=== PATIENT | male | born 1965 | race Hispanic/Latino ===

== ENCOUNTER → 2017-04-25 | Outpatient (CLI) | payer BC ==
[~2017-04-25] MED LIST: MULTI-VITAMIN1 EACH; NORCO 5-325 TA1 EACH PO; OMEPRAZOLE PO; ZANTAC150 MG
--- NOTE | 2017-04-26 09:24 | Diagnostic Imaging Report ---
Right knee MRI without contrast. History: Knee pain. Injury of the quadriceps. Swelling. Fall. Comparison: None. Technique: Multiplanar multi-sequence MRI of the knee without contrast. Findings: Medial compartment: There is a complex medial meniscus tear involving the posterior horn and body segments. The medial compartmental articular cartilage surfaces are slightly thin. The medial collateral ligament complex is intact. Lateral compartment: There is a complex tear involving the posterior horn of the lateral meniscus. The lateral compartmental articular cartilage surfaces are slightly thinned. The lateral collateral ligament complex is intact. Intercondylar notch: The ACL and PCL are intact. Patellofemoral compartment: No chondromalacia or patellar dislocation. Extensor mechanism: There is a full-thickness quadriceps tendon tear at its insertion site on the superior pole of the patella. There is minimal retraction of the torn fibers. There is adjacent soft tissue edema and a suprapatellar effusion. The patellar tendon is intact. Other findings: There is a joint effusion and synovitis. There is no acute fracture, subluxation or avascular necrosis. IMPRESSION: Full-thickness quadriceps tendon tear at its insertion on the superior pole of the patella with adjacent soft tissue edema and effusion. 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 Complex lateral meniscus tear with mild degenerative arthrosis in the lateral compartment of the knee. Signed by: Dr. Khari Uriostegui M.D. on 04/26/2017 9:21 AM
--- NOTE | 2017-04-26 09:28 | Diagnostic Imaging Report ---
Left knee MRI without contrast. History: Knee pain. Injury of the quadriceps. Swelling. Fall. Comparison: None. Technique: Multiplanar multi-sequence MRI of the knee without contrast. Findings: Medial compartment: There is a complex medial meniscus tear involving the posterior horn and body segments. This is best seen on coronal series 5 image 14. The medial compartmental articular cartilage surfaces are slightly thin. The medial collateral ligament complex is intact. Lateral compartment: There is degeneration and fraying of the lateral meniscus. The lateral compartmental articular cartilage surfaces are slightly thinned. The lateral collateral ligament complex is intact. Intercondylar notch: The ACL and PCL are intact. Patellofemoral compartment: No chondromalacia or patellar dislocation. Extensor mechanism: There is a full-thickness quadriceps tendon tear at its insertion site on the superior pole of the patella. This is best seen on sagittal series 3 image 16. There is minimal retraction of the torn fibers. There is adjacent soft tissue edema and a suprapatellar effusion. The patellar tendon is intact. There is articular cartilage fraying and deep measuring in the patellofemoral compartment with underlying bone marrow edema. Other findings: There is a joint effusion and synovitis. There is no acute fracture, subluxation or avascular necrosis. IMPRESSION: Full-thickness quadriceps tendon tear at its insertion on the superior pole of the patella with adjacent soft tissue edema and effusion. 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 Articular cartilage fraying and deep fissuring in the patellofemoral compartment with underlying bone marrow edema. Signed by: Dr. Khari Uriostegui M.D. on 04/26/2017 9:25 AM
== END ==
LOC: MRI 16:34
PROVIDERS: ATTEND Specialist
DX: S76.192A Other specified injury of left quadriceps muscle, fascia and tendon, initial encounter (principal); S76.191A Other specified injury of right quadriceps muscle, fascia and tendon, initial encounter

== ENCOUNTER 2017-04-30 10:30 | Observation (INO) | payer BC ==
[~2017-04-30] VITALS: Ht 180.3 cm; Wt 123.4 kg
[~2017-04-30 10:30] MED LIST changes: -NORCO 5-325 TA1 EACH PO
--- OUTSIDE RECORDS SUMMARY | 2017-04-30 10:34 | XMS REPORT ---
Author Author [facility] Address Unknown Phone Unavailable Care Team Providers Care English As A Second Language Instructor Name Role Phone MAUDE JARVIS Unavailable Unavailable Problems This patient has no known problems. Allergies, Adverse Reactions, Alerts This patient has no known allergies or adverse reactions. Medications This patient has no known medications. Results Test Description Test Time Test Comments Text Results Atomic Results Result Comments MRI RIGHT KNEE WO [place] [address] Patient Name: ISIDRO HYATT MR #: [id number] : 1965 Age/Sex: 51/M Req #: [id number] Adm Physician: Ordered by: MAUDE JARVIS MD Report #: [id number] Location: MRI Room/Bed: Procedure: [id number] MRI/MRI RIGHT KNEE WO Exam Date: Exam Time: REPORT STATUS: Signed Right knee MRI without contrast. History: Knee pain. Injury of the quadriceps. Swelling. Fall. Comparison: None. Technique: Multiplanar multi-sequence MRI of the knee without contrast. Findings: Medial compartment: There is a complex medial meniscus tear involving the posterior horn and body segments. The medial compartmental articular cartilage surfaces are slightly thin. The medial collateral ligament complex is intact. Lateral compartment: There is a complex tear involving the posterior horn of the lateral meniscus. The lateral compartmental articular cartilage surfaces are slightly thinned. The lateral collateral ligament complex is intact. Intercondylar notch: The ACL and PCL are intact. Patellofemoral compartment: No chondromalacia or patellar dislocation. Extensor mechanism: There is a full-thickness quadriceps tendon tear at its insertion site on the superior pole of the patella. There is minimal retraction of the torn fibers. There is adjacent soft tissue edema and a suprapatellar effusion. The patellar tendon is intact. Other findings: There is a joint effusion and synovitis. There is no acute fracture, subluxation or avascular necrosis. IMPRESSION: Full- thickness quadriceps tendon tear at its insertion on the superior pole of the patella with adjacent soft tissue edema and effusion. 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 Complex lateral meniscus tear with mild degenerative arthrosis in the lateral compartment of the knee. Signed by: Dr. Khari Uriostegui M.D. on 04/26/2017 9:21 AM Dictated By: KHARI URIOSTEGUI MD, MD 0 Transcribed By: DERIK on 920 COPY TO: MAUDE JARVIS MD MRI KNEE LEFT WO [place] [address] Patient Name: ISIDRO HYATT MR #: [id number] : 1965 Age/Sex: 51/M Req #: [id number] Adm Physician: Ordered by: MAUDE JARVIS MD Report #: [id number] Location: MRI Room/Bed: Procedure: [id number] MRI/MRI KNEE LEFT WO Exam Date: Exam Time: REPORT STATUS: Signed Left knee MRI without contrast. History: Knee pain. Injury of the quadriceps. Swelling. Fall. Comparison: None. Technique: Multiplanar multi-sequence MRI of the knee without contrast. Findings: Medial compartment: There is a complex medial meniscus tear involving the posterior horn and body segments. This is best seen on coronal series 5 image 14. The medial compartmental articular cartilage surfaces are slightly thin. The medial collateral ligament complex is intact. Lateral compartment: There is degeneration and fraying of the lateral meniscus. The lateral compartmental articular cartilage surfaces are slightly thinned. The lateral collateral ligament complex is intact. Intercondylar notch: The ACL and PCL are intact. Patellofemoral compartment: No chondromalacia or patellar dislocation. Extensor mechanism: There is a full-thickness quadriceps tendon tear at its insertion site on the superior pole of the patella. This is best seen on sagittal series 3 image 16. There is minimal retraction of the torn fibers. There is adjacent soft tissue edema and a suprapatellar effusion. The patellar tendon is intact. There is articular cartilage fraying and deep measuring in the patellofemoral compartment with underlying bone marrow edema. Other findings: There is a joint effusion and synovitis. There is no acute fracture, subluxation or avascular necrosis. IMPRESSION: Full-thickness quadriceps tendon tear at its insertion on the superior pole of the patella with adjacent soft tissue edema and effusion. 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 Articular cartilage fraying and deep fissuring in the patellofemoral compartment with underlying bone marrow edema. Signed by: Dr. Khari Uriostegui M.D. on 04/26/2017 9:25 AM Dictated By: KHARI URIOSTEGUI MD, MD 4 Transcribed By: DERIK on 04/26/17924 COPY TO: MAUDE JARVIS MD
[2017-04-30] MEDS ORDERED: CEFAZOLIN SOD 2 GM/D5W 50ML 50 ML IV ONE (10:57)
[2017-04-30] MEDS ORDERED: NORCO 5-325 TA1 EACH PO (11:01)
[2017-04-30] MEDS ORDERED: BUPIVACAINE HCL 0.5% 10ML MPF VIAL INJ ONE (11:51)
[2017-04-30] MEDS ORDERED: BACITRACIN 50,000 UNIT VIAL ONE (11:51)
[2017-04-30] MEDS ORDERED: SEVOFLURANE INHAL SOLN 250 ML PEN BTL ONE (12:46)
[2017-04-30] MEDS ORDERED: DEXAMETHASONE SOD PHOS INJ 4 MG/ML VIAL ONE (12:46)
[2017-04-30] MEDS ORDERED: LIDOCAINE HCL 2% LOCAL INJ 5 ML SDV VIAL INJ ONE (12:46)
[2017-04-30] MEDS ORDERED: ONDANSETRON HCL INJ 2 MG/ML VIAL ONE (12:46)
[2017-04-30] MEDS ORDERED: PROPOFOL IV EMULSION 10 MG/ML 20 ML VIAL ONE (12:46)
[2017-04-30] MEDS ORDERED: ZOLPIDEM TARTRATE 5 MG TAB PO PRN (14:45)
[2017-04-30] MEDS ORDERED: HYDROMORPHONE 0.2MG/ML-SOD CHL 30ML PCA SYRINGE IV PRN (14:45)
[2017-04-30] MEDS ORDERED: DIPHENHYDRAMINE HCL INJ 50 MG/ML VIAL IM/IV PRN (14:45)
[2017-04-30] MEDS ORDERED: ACETAMINOPHEN 1000 MG/100 ML IV PRN (14:45)
[2017-04-30] MEDS ORDERED: ONDANSETRON HCL INJ 2 MG/ML VIAL IV PRN (14:45)
[2017-04-30] MEDS ORDERED: NALOXONE HCL INJ 0.4 MG/ML AMP IV PRN (14:45)
[2017-04-30] MEDS ORDERED: FENTANYL CITRATE/PF 100MCG/2 ML INJ ONE ×2 (14:53→16:16)
[2017-04-30] MEDS ORDERED: MIDAZOLAM HCL 2 MG/2 ML VIAL ONE (14:53)
[2017-04-30] MEDS ORDERED: ACETAMINOPHEN 1000 MG/100 ML 100 ML IV ONE (15:42)
[2017-04-30] MEDS ORDERED: MEPERIDINE HCL INJ 50 MG/ML INJ ONE (15:42)
[2017-04-30] MEDS ORDERED: KETOROLAC TROMETHAMINE 30 MG/ML VIAL ONE (15:42)
[2017-04-30] MEDS ORDERED: HYDROMORPHONE 0.2MG/ML-SOD CHL 30ML PCA SYRINGE IV ONE (15:54)
--- NOTE | 2017-04-30 16:26 | Operative Report ---
DATE OF PROCEDURE: April 30, 2017 PREOPERATIVE DIAGNOSIS: Bilateral quadriceps tendon ruptures. POSTOPERATIVE DIAGNOSIS: Bilateral quadriceps tendon ruptures. PROCEDURE PERFORMED: Repair of the right quadriceps tendon rupture followed by repair of the left quadriceps tendon rupture. INSIDE TECHNICAL SALES REPRESENTATIVE: Karen Dalal PA-C ANESTHESIA: General endotracheal intubation anesthesia. IV FLUIDS: Per the anesthesia record. BRIEF DESCRIPTION OF THE PATIENT'S OPERATIVE PROCEDURE: Mr. Alcazar is taken to the operating room and placed in supine position on the operating table. Following induction of general anesthesia as well as endotracheal intubation, the patient's bilateral lower extremities were examined under anesthesia. He was found to have palpable defects at the level of the knee bilaterally with obvious quadriceps tendon ruptures that had been confirmed by an MRI examination just prior to surgery. The patient's bilateral lower extremities were prepped and draped in standard surgical fashion. Case was begun by creating incision along the anterior aspects of the leg, bilaterally, extending proximally in the region of the thigh musculature to the level of the tibial tubercle. This incision was carried through skin only. Blunt dissection was used to deepen the incision and the quadriceps was identified on the right side and was seen to be completely ruptured from its attachment to the patella. There was also retinacular injuries both medially and laterally. The quadriceps tendon was cleaned thoroughly and debrided. The insertion site was also cleaned thoroughly and debrided. FiberWire sutures were woven through in a whip-stitch type fashion. The sutures were then pulled through drill holes in the patella and tied firmly over the anterior surface of the patella. The retinacular tissues and muscle injuries medially and laterally were then sewn closed with FiberWire suture. The wounds were copiously irrigated. They were closed in a multilayer fashion. Sterile dressings were applied. Attention was then turned to the left quadriceps tendon injury. Again a linear incision beginning proximally over the distal thigh musculature and extending distally to the level of the tibial tubercle was carried through the skin and subcutaneous tissues. Full-thickness skin flaps were elevated medially and laterally. This revealed a quadriceps tendon avulsion from the proximal aspect of the patella. The quadriceps tendon was debrided as well as the insertion site into the patella. A bleeding bony bed was created in the superior pole of the patella. The FiberWire suture was woven through the quadriceps tendon and then pulled through drill holes in the patella. The sutures were then tied firmly over the patella drawing the quadriceps tendon into the superior pole of the patella. The retinacular injuries, both medially and laterally, were then repaired with a FiberWire suture. The wound was copiously irrigated. It was closed in a multilayer fashion. Sterile dressings were applied. Long posterior splints and anterior splints were also placed over the legs to prevent flexion of the knee joint. The patient was then awakened and taken to post anesthesia care unit in stable condition. Karen Dalal acted as the school psychologist assistant for this case and was necessary for the prepping and draping of the patient as well as the retraction of soft tissues that allowed these cases to be successful. Job#: [id number] ISAAC
[2017-04-30] MEDS: SODIUM CHLORIDE 0.9% 1000ML 1,000 ML IV SCH (17:00)
[2017-04-30 17:52] VITALS: BP 154/79
[2017-04-30] MEDS ORDERED: KETOROLAC TROMETHAMINE 30 MG/ML VIAL IV STA (19:48)
[2017-04-30 20:00] VITALS: BP 173/95
[2017-04-30 21:00] VITALS: BP 173/95
[2017-04-30] MEDS: CEFAZOLIN SOD 1 GM VIAL IV SCH (22:00)
[2017-04-30] MEDS ORDERED: CEFAZOLIN SOD 1 GM/NS 50ML 50 ML IV SCH (22:00)
[2017-04-30] MEDS: KETOROLAC TROMETHAMINE 10 MG TAB PO PRN (23:15)
[2017-05-01] VITALS: BP 150/74
[2017-05-01] MEDS: SODIUM CHLORIDE 0.9% 1000ML 1,000 ML IV SCH ×2 (00:43→09:50)
[2017-05-01 04:00] VITALS: BP 136/76
[2017-05-01] MEDS: KETOROLAC TROMETHAMINE 10 MG TAB PO PRN ×2 (05:42→11:40)
[2017-05-01] MEDS: CEFAZOLIN SOD 1 GM VIAL IV SCH ×2 (05:42→13:00)
[2017-05-01 08:22] VITALS: BP 144/82
[2017-05-01 12:12] VITALS: BP 140/76
[2017-05-01] MEDS ORDERED: RIVAROXABAN 10 MG TABLET PO SCH (17:00)
== END 2017-05-01 14:46 | disposition home or self-care (01) ==
LOC: OR 10:30 → MERGE 13:00 → IMCU 16:41
PROVIDERS: ADMIT Specialist; ATTEND Specialist
DX: S76.112D Strain of left quadriceps muscle, fascia and tendon, subsequent encounter (principal); S76.111D Strain of right quadriceps muscle, fascia and tendon, subsequent encounter
CPT/HCPCS: 27385; 93005; 97116; 97139; 97161; G0378 ×2; G8978; G8979; J0690 ×2; J1100; J1885; J2001; J2175; J2250; J2405; J7030